=== PATIENT | male | born 1940 | race Caucasian/White ===

== ENCOUNTER → 2016-10-03 | Outpatient (CLI) | payer MEDICARE, OTHER ==
[~2016-10-03] MED LIST: ALBUTEROL0.09 MG/A2 INH; ASPIRIN81 MG PO; AUGMENTIN 875 M1 TAB PO; AUGMENTIN 875-875 MG PO; AZITHROMYCIN250 MG PO; BACTRIM DS 8001 TA1 PO; CLARITIN10 MG PO; DIAZEPAM2 MG PO; FLOMAX0.4 MG PO; LEVOFLOXACIN500 MG PO; LISINOPRIL5 MG PO; MELOXICAM15 MG; MOTRIN800 MG PO; NAPROSYN500 MG PO; NO DAILY MEDS; NORCO 10-325 T1 EACH PO; OMEPRAZOLE40 MG PO; OMNICEF300 MG PO; PREDNISONE50 MG PO; PRINIVIL5 MG; PROVENTIL0.09 MG/AC IH; TRAMADOL HCL50 MG PO; VESICARE10 MG PO; VICODIN 5/500 505 MG PO; VOLTAREN75 MG PO; ZANTAC 300300 MG PO; ZITHROMAX250 MG PO; ZOFRAN ODT4 MG SL; [UNRECOGNIZED DRUG - OTHER]
== END | disposition home or self-care (01) ==
LOC: LAB 13:51
DX: C61 Malignant neoplasm of prostate (principal)

== ENCOUNTER 2016-11-24 21:45 | Emergency (ER) | payer MEDICARE, OTHER ==
[~2016-11-24] VITALS: Ht 182.8 cm; Wt 95.3 kg
[2016-11-24 22:30] LABS: BASO % 0.6 % (0.0-1.0); EOS # 0.2 10*3/uL (0.0-0.4); EOS % 3.3 % (1.0-4.0); HEMATOCRIT 43.6 % (42.0-52.0); HEMOGLOBIN 14.9 g/dl (14.0-18.0); LYMPH # 3.1 10*3/uL (1.3-4.4); LYMPH % 43.8 % (27.0-41.0); MEAN CELL VOLUME 90.1 fl (80.0-94.0); MEAN CORPUSCULAR HGB 30.8 pg (27.0-31.0); MEAN CORPUSCULAR HGB CONC 34.2 g/dl (33.0-37.0); MEAN PLATELET VOLUME 9.9 fl (9.6-12.3); MONO # 0.6 10*3/uL (0.1-1.0); MONO % 8.5 % (3.0-9.0); NEUT # 3.1 10*3/uL (2.3-7.9); NEUT % 43.5 % (47.0-73.0); PLATELET COUNT AUTOMATED 129 10*3/uL (130-400); RED BLOOD COUNT 4.84 10*6/uL (4.50-5.90); RED CELL DISTRI WIDTH 12.3 % (0-14.5)
[2016-11-24 22:45] LABS: ALBUMIN 3.5 gm/dl (3.1-4.5); BILIRUBIN, TOTAL 0.6 mg/dl (0.2-1.0); TOTAL PROTEIN 6.8 gm/dL (6.4-8.2)
== END 2016-11-25 00:04 | disposition home or self-care (01) ==
LOC: ED 21:45
PROVIDERS: Registered Nurse
DX: L60.8 Other nail disorders (principal); F17.200 Nicotine dependence, unspecified, uncomplicated; Z79.82 Long term (current) use of aspirin

== ENCOUNTER → 2016-12-11 | Outpatient (CLI) | payer MEDICARE, OTHER ==
[2016-12-11 11:19] LABS: BASO % 0.4 % (0.0-1.0); EOS # 0.3 10*3/uL (0.0-0.4); EOS % 3.6 % (1.0-4.0); HEMATOCRIT 43.9 % (42.0-52.0); HEMOGLOBIN 15.3 g/dl (14.0-18.0); LYMPH # 3.4 10*3/uL (1.3-4.4); LYMPH % 42.3 % (27.0-41.0); MEAN CELL VOLUME 88.9 fl (80.0-94.0); MEAN CORPUSCULAR HGB CONC 34.9 g/dl (33.0-37.0); MONO # 0.5 10*3/uL (0.1-1.0); MONO % 6.6 % (3.0-9.0); NEUT # 3.8 10*3/uL (2.3-7.9); NEUT % 46.7 % (47.0-73.0); PLATELET COUNT AUTOMATED 141 10*3/uL (130-400); RED BLOOD COUNT 4.94 10*6/uL (4.50-5.90); RED CELL DISTRI WIDTH 12.2 % (0-14.5); WHITE BLOOD COUNT 8.1 10*3/uL (4.8-10.8)
[2016-12-11 11:37] LABS: BUN 17 mg/dl (7-24); EST GLOM FILT AFRICAN AMERICAN > 60 ml/min
== END | disposition home or self-care (01) ==
LOC: LAB 10:56
PROVIDERS: Psychiatry & Neurology Neurology
DX: Z13.89 Encounter for screening for other disorder (principal); R51 Headache

== ENCOUNTER → 2016-12-13 | Outpatient (CLI) | payer MEDICARE, OTHER | END | disposition home or self-care (01) | LOC: MRI 13:55 | DX: C61 Malignant neoplasm of prostate (principal); I10 Essential (primary) hypertension; R51 Headache; Z80.1 Family history of malignant neoplasm of trachea, bronchus and lung ==

== ENCOUNTER → 2017-02-13 | Day surgery (SDC) | payer MEDICARE, OTHER ==
[~2017-02-13] VITALS: Ht 182.8 cm; Wt 95.3 kg
[~2017-02-13] MED LIST changes: +PRILOSEC20 M1 PO
[2017-02-13 06:45] VITALS: BP 133/73
[2017-02-13 07:58] VITALS: BP 128/71
[2017-02-13 08:12] VITALS: BP 137/68
[2017-02-13 08:28] VITALS: BP 155/72
== END | disposition home or self-care (01) ==
LOC: SDC 02-10 13:15
DX: Z12.11 Encounter for screening for malignant neoplasm of colon (principal); K57.30 Diverticulosis of large intestine without perforation or abscess without bleeding; K64.8 Other hemorrhoids; D12.2 Benign neoplasm of ascending colon; I10 Essential (primary) hypertension; K21.9 Gastro-esophageal reflux disease without esophagitis; Z85.46 Personal history of malignant neoplasm of prostate; Z98.890 Other specified postprocedural states; F17.210 Nicotine dependence, cigarettes, uncomplicated

== ENCOUNTER 2017-09-01 19:51 | Inpatient (IN) | payer MEDICARE, OTHER ==
[~2017-09-01] VITALS: Ht 182.9 cm; Wt 102.2 kg
--- NOTE | ~2017-09-01 | CON ---
[place], [place] REPORT OF CONSULTATION NAME: KELLI DURAND UNIT #: [id number] ROOM: [facility] DOCTOR: KATALINA MARTIN,DHAVAL BIRTHDATE: [birth year] DOS: 09/02/2017 REASON FOR CONSULTATION: Chest pain. HISTORY OF PRESENT ILLNESS: The patient is a 76-year-old gentleman with history of hypertension and acid reflux, who came to the Emergency Room with left-sided chest pain, which started 6:00 in the evening at rest. He described it as an aching pain in the midsternal area. No radiation. Constant pain. No associated nausea, diaphoresis or shortness of breath. Initially he thought it was acid reflux, but did not resolve, hence he came to the Emergency Room and was sent to the hospital and Cardiology consult for any further recommendations. He denies any further chest pains. No PND or orthopnea. No palpitations. No nausea, vomiting or diarrhea. No headache. No bladder or bowel symptoms. No tingling, numbness or weakness. No neurologic symptoms. No genitourinary symptoms. No musculoskeletal symptoms. He has history of acid reflux, mostly asymptomatic. History of sleep apnea and hypertension. He does not smoke or drink. REVIEW OF SYSTEMS: Review of the 10 systems negative except as mentioned above. PAST MEDICAL HISTORY: 1. Hypertension. 2. Acid reflux. 3. Anemia. 4. Non-morbid obesity. 5. Sleep apnea. 6. Chronic kidney disease. 7. Degenerative disk disease. PAST SURGICAL HISTORY: Bilateral knee replacement. SOCIAL HISTORY: The patient occasionally smokes cigars, but no cigarettes, does not use drugs, does not drink. ALLERGIES: No known drug allergies. FAMILY HISTORY: Nil contributory. HOME MEDICATIONS: Reviewed including lisinopril 5 mg, Prilosec, Flomax and aspirin. REVIEW OF THE DIAGNOSTIC TESTS: Normal sinus rhythm, normal QT interval. Nonspecific ST-T changes. Rhythm strip showed sinus rhythm with occasional sinus bradycardia. Cardiac enzymes unremarkable. Potassium 4.1, magnesium 2.2. CBC unremarkable. Chest x-ray unremarkable, no acute cardiopulmonary pathology. IMPRESSION: 1. Chest pain, atypical, myocardial infarction ruled out. 2. Sinus bradycardia, asymptomatic. [place], [place] REPORT OF CONSULTATION NAME: KELLI DURAND UNIT #: [id number] ROOM: [facility] DOCTOR: KATALINA MARTIN,DHAVAL BIRTHDATE: [birth year] 3. Hypertension. 4. Acid reflux. 5. Sleep apnea. 6. Overweight. 7. Tobacco chew. 8. Intermittent lower extremity edema. RECOMMENDATION: The cardiac enzymes and EKGs are unremarkable. If blood pressures are stable, continue to watch the heart rates and avoid AV blocking medications due to sinus bradycardia. If not done, check his thyroid function test. He can be discharged home today from cardiac standpoint and we will see him as outpatient and schedule for outpatient stress test and a 2D echo. Risk factor modification to quit chewing tobacco as well as diet, exercise and weight loss discussed. There is no family at the bedside at the time of my examination. DHAVAL DARDEN MD CM:CONSTR:REPORT OF CONSULTATION 1642 09/03/17 0027 interface
[2017-09-01 19:52] VITALS: BP 146/71
[2017-09-01 20:06] LABS: BASO % 0.6 % (0.0-1.0); EOS # 0.3 10*3/uL (0.0-0.4); EOS % 3.9 % (1.0-4.0); HEMATOCRIT 42.5 % (42.0-52.0); HEMOGLOBIN 14.6 g/dl (14.0-18.0); LYMPH # 3.2 10*3/uL (1.3-4.4); LYMPH % 44.7 % (27.0-41.0); MEAN CORPUSCULAR HGB 30.9 pg (27.0-31.0); MEAN CORPUSCULAR HGB CONC 34.4 g/dl (33.0-37.0); MONO # 0.6 10*3/uL (0.1-1.0); MONO % 7.7 % (3.0-9.0); NEUT # 3.1 10*3/uL (2.3-7.9); NEUT % 42.8 % (47.0-73.0); PLATELET COUNT AUTOMATED 112 10*3/uL (130-400); RED BLOOD COUNT 4.72 10*6/uL (4.50-5.90); RED CELL DISTRI WIDTH 12.4 % (0-14.5); WHITE BLOOD COUNT 7.2 10*3/uL (4.8-10.8)
[2017-09-01 20:16] LABS: ACT PARTIAL THROMBO TIME 22.3 SECONDS (20.8-31.5); INTERNATIONAL NORM RATIO 0.9 (2.0-3.5)
[2017-09-01 20:22] LABS: ALBUMIN 3.5 gm/dl (3.1-4.5); ALKALINE PHOSPHATASE 63 U/L (45-117); BUN 17 mg/dl (7-24); CHLORIDE 104 mmol/L (98-107); CREATININE 1.27 mg/dL (0.70-1.30); POTASSIUM 3.7 mmol/L (3.5-5.1); SGOT/AST 21 IU/L (3-35); SGPT/ALT 22 U/L (12-78); SODIUM 139 mmol/L (136-145); TOTAL PROTEIN 6.7 gm/dL (6.4-8.2)
[2017-09-01 20:24] LABS: TROPONIN I < 0.015 ng/ml (<0.045)
[2017-09-01 20:31] VITALS: BP 133/85
[2017-09-01 20:52] VITALS: BP 134/80
[2017-09-01 21:14] VITALS: BP 143/72
[2017-09-01 22:00] VITALS: BP 135/55
[2017-09-01 22:40] VITALS: BP 153/59
[2017-09-01] MEDS ORDERED: DERMACINRX5000 UNIT PO (23:19)
[2017-09-02] VITALS: BP 144/64
[2017-09-02 07:46] LABS: BASO % 0.6 % (0.0-1.0); EOS # 0.2 10*3/uL (0.0-0.4); EOS % 3.8 % (1.0-4.0); HEMOGLOBIN 14.5 g/dl (14.0-18.0); LYMPH # 2.6 10*3/uL (1.3-4.4); LYMPH % 40.9 % (27.0-41.0); MEAN CELL VOLUME 89.6 fl (80.0-94.0); MEAN CORPUSCULAR HGB 30.2 pg (27.0-31.0); MEAN CORPUSCULAR HGB CONC 33.7 g/dl (33.0-37.0); MEAN PLATELET VOLUME 10.2 fl (9.6-12.3); MONO # 0.5 10*3/uL (0.1-1.0); MONO % 7.5 % (3.0-9.0); NEUT % 46.9 % (47.0-73.0); PLATELET COUNT AUTOMATED 122 10*3/uL (130-400); RED CELL DISTRI WIDTH 12.3 % (0-14.5); WHITE BLOOD COUNT 6.4 10*3/uL (4.8-10.8)
[2017-09-02 08:00] VITALS: BP 154/72
[2017-09-02 08:05] LABS: ALBUMIN 3.4 gm/dl (3.1-4.5); BUN 14 mg/dl (7-24); CHLORIDE 108 mmol/L (98-107); CHOLESTEROL 122 mg/dL (<200); CREATININE 1.16 mg/dL (0.70-1.30); HDL CHOLESTEROL 44 mg/dl (40-60); LDL CHOLESTEROL 66 mg/dL (9-159); PHOSPHOROUS 2.9 mg/dL (2.5-4.9); POTASSIUM 4.1 mmol/L (3.5-5.1); SGOT/AST 15 IU/L (3-35); SGPT/ALT 14 U/L (12-78); SODIUM 143 mmol/L (136-145); TOTAL PROTEIN 6.2 gm/dL (6.4-8.2); TRIGLYCERIDES 62 mg/dl (<150); VLDL CHOLESTEROL 12 mg/dL (6-40)
[2017-09-02 08:12] LABS: ALKALINE PHOSPHATASE 54 U/L (45-117)
[2017-09-02 08:30] LABS: VITAMIN D, 25-HYDROXY 74.5 ng/mL (30-100)
[2017-09-02 12:00] VITALS: BP 158/76
== END 2017-09-02 13:48 | disposition home or self-care (01) | DRG 313 ==
LOC: ED 19:51 → EDHOLD 22:01 → 5E 22:23
PROVIDERS: Emergency Medicine Emergency Medical Services; Internal Medicine
DX: R07.89 Other chest pain (principal); D69.6 Thrombocytopenia, unspecified; D64.9 Anemia, unspecified; N18.3 Chronic kidney disease, stage 3 (moderate); R00.1 Bradycardia, unspecified; K21.9 Gastro-esophageal reflux disease without esophagitis; E83.41 Hypermagnesemia; F17.200 Nicotine dependence, unspecified, uncomplicated; G47.33 Obstructive sleep apnea (adult) (pediatric); M19.90 Unspecified osteoarthritis, unspecified site; K57.30 Diverticulosis of large intestine without perforation or abscess without bleeding; I12.9 Hypertensive chronic kidney disease with stage 1 through stage 4 chronic kidney disease, or unspecified chronic kidney disease; R73.9 Hyperglycemia, unspecified; E53.8 Deficiency of other specified B group vitamins; E66.01 Morbid (severe) obesity due to excess calories; Z96.653 Presence of artificial knee joint, bilateral; Z80.8 Family history of malignant neoplasm of other organs or systems; Z71.6 Tobacco abuse counseling; Z79.82 Long term (current) use of aspirin; Z72.89 Other problems related to lifestyle; Z68.27 Body mass index [BMI] 27.0-27.9, adult

== ENCOUNTER → 2017-09-06 | Outpatient (CLI) | payer MEDICARE, OTHER ==
[~2017-09-06] MED LIST changes: +DERMACINRX5000 UNIT PO
--- NOTE | ~2017-09-06 | ST ---
[place], [place] EXERCISE STRESS TEST REPORT NAME: KELLI DURAND [facility] #: [id number] UNIT #: [id number] ROOM: DOCTOR: MAUDE BOSS MD BIRTHDATE: [birth year] DOS: 09/06/2017 PHARMACOLOGIC STRESS TEST INDICATIONS: Chest pain. PROCEDURE: The patient walked on a full Mauricio protocol stress test for 6 minutes 45 seconds and achieved a maximum heart rate of 130, which represented 89% of his maximum predicted heart rate at a workload of 10 mets. He stopped because of fatigue and did not reproduce his chest pain. The resting electrocardiogram was normal. With exercise, he did have mild J-point depression with rapid upsloping ST segments. The Dalton treadmill score was 6.75 consistent with a good cardiac prognosis. One minute prior to completion of the exercise protocol, the patient was given radionuclide intravenously. IMPRESSION: 1. Adequate exercise capacity without chest pain or diagnostic electrocardiographic changes. 2. Radionuclide administered. Please see the separately reported imaging report for details of the patient's stress test imaging results. MAUDE BOSS MD CM:STRESS:EXERCISE STRESS TEST REPORT [id number] MAUDE BOSS MD
== END | disposition home or self-care (01) ==
LOC: CARD 00:16
DX: R07.2 Precordial pain (principal)

== ENCOUNTER 2018-02-12 22:27 | Emergency (ER) | payer MEDICARE, OTHER ==
[~2018-02-12] VITALS: Ht 182.8 cm; Wt 90.7 kg
== END 2018-02-12 23:06 | disposition home or self-care (01) ==
LOC: ED 22:27
DX: T16.2XXA Foreign body in left ear, initial encounter (principal); K21.9 Gastro-esophageal reflux disease without esophagitis; I12.9 Hypertensive chronic kidney disease with stage 1 through stage 4 chronic kidney disease, or unspecified chronic kidney disease; N18.3 Chronic kidney disease, stage 3 (moderate); E66.9 Obesity, unspecified; Z87.891 Personal history of nicotine dependence; Z79.899 Other long term (current) drug therapy; Z79.82 Long term (current) use of aspirin; X58.XXXA Exposure to other specified factors, initial encounter; Y93.89 Activity, other specified; Y92.89 Other specified places as the place of occurrence of the external cause; Y99.8 Other external cause status

== ENCOUNTER → 2018-03-21 | Outpatient (CLI) | payer MEDICARE, OTHER ==
[2018-03-21 10:17] LABS: THYROID STIM HORMONE (HS) 2.14 uIU/ml (0.358-4.75)
[2018-03-22 17:38] LABS: FOLLICLE STIMULATING HORMONE 36.3 mIU/mL (1.5-12.4); LUTEINIZING HORMONE 004283 27.5 mIU/mL (1.7-8.6); PROLACTIN 004465 11.5 ng/mL (4.0-15.2)
== END | disposition home or self-care (01) ==
LOC: LAB 09:02
PROVIDERS: Urology
DX: Z12.5 Encounter for screening for malignant neoplasm of prostate (principal); E29.1 Testicular hypofunction; N42.9 Disorder of prostate, unspecified

== ENCOUNTER → 2018-09-19 | Outpatient (CLI) | payer MEDICARE ==
[~2018-09-19] MED LIST changes: +MIRALAX POWDER17 G1 PO; +STOOL SOFTENER100 M3 PO
== END | disposition home or self-care (01) ==
LOC: CT 01:24
DX: K76.0 Fatty (change of) liver, not elsewhere classified (principal); K80.20 Calculus of gallbladder without cholecystitis without obstruction; K44.9 Diaphragmatic hernia without obstruction or gangrene; N20.0 Calculus of kidney; R79.89 Other specified abnormal findings of blood chemistry; K59.01 Slow transit constipation

== ENCOUNTER → 2019-02-13 | Outpatient (CLI) | payer MEDICARE | END | disposition home or self-care (01) | LOC: LAB 09:59 | DX: C61 Malignant neoplasm of prostate (principal) ==

== ENCOUNTER → 2019-03-18 | Outpatient (CLI) | payer MEDICARE | END | disposition home or self-care (01) | LOC: CT 07:41 | DX: N20.0 Calculus of kidney (principal); K57.92 Diverticulitis of intestine, part unspecified, without perforation or abscess without bleeding; J43.8 Other emphysema; K76.89 Other specified diseases of liver ==

== ENCOUNTER → 2019-07-03 | Outpatient (CLI) | payer MEDICARE, OTHER | LOC: US 11:45 | DX: I82.890 Acute embolism and thrombosis of other specified veins (principal); R19.00 Intra-abdominal and pelvic swelling, mass and lump, unspecified site; M79.89 Other specified soft tissue disorders; M71.22 Synovial cyst of popliteal space [Baker], left knee; I82.432 Acute embolism and thrombosis of left popliteal vein ==

== ENCOUNTER → 2019-11-28 | Outpatient (CLI) | payer MEDICARE, OTHER | END | disposition home or self-care (01) | LOC: LAB 14:31 | DX: C61 Malignant neoplasm of prostate (principal) ==

== ENCOUNTER 2021-06-19 14:06 | Inpatient (IN) | payer MEDICARE ==
[~2021-06-19] VITALS: Ht 180.3 cm; Wt 99.9 kg
[2021-06-19 14:13] VITALS: BP 146/79
[2021-06-19 15:01] LABS: BASO % 0.2 % (0.0-1.0); EOS % 0.3 % (1.0-4.0); HEMATOCRIT 40.6 % (42.0-52.0); LYMPH # 1.1 10*3/uL (1.3-4.4); LYMPH % 17.7 % (27.0-41.0); MEAN CELL VOLUME 84.2 fl (80.0-94.0); MEAN CORPUSCULAR HGB 30.5 pg (27.0-31.0); MEAN CORPUSCULAR HGB CONC 36.2 g/dl (33.0-37.0); MEAN PLATELET VOLUME 10.1 fl (9.6-12.3); MONO # 0.4 10*3/uL (0.1-1.0); MONO % 6.9 % (3.0-9.0); NEUT # 4.5 10*3/uL (2.3-7.9); NEUT % 74.6 % (47.0-73.0); PLATELET COUNT AUTOMATED 115 10*3/uL (130-400); RED BLOOD COUNT 4.82 10*6/uL (4.50-5.90); RED CELL DISTRI WIDTH 12.3 % (0-14.5)
[2021-06-19 15:18] LABS: ALBUMIN 2.6 gm/dl (3.1-4.5); ALKALINE PHOSPHATASE 94 U/L (45-117); BUN 10 mg/dl (7-24); CHLORIDE 91 mmol/L (98-107); CREATININE 0.77 mg/dL (0.70-1.30); POTASSIUM 4.7 mmol/L (3.5-5.1); SGOT/AST 49 IU/L (3-35); SGPT/ALT 30 U/L (12-78); SODIUM 125 mmol/L (136-145); TOTAL PROTEIN 6.2 gm/dL (6.4-8.2)
[2021-06-19 15:32] VITALS: BP 146/75
[2021-06-19 16:07] VITALS: BP 144/68
[2021-06-19 18:39] VITALS: BP 164/78
[2021-06-19 20:02] VITALS: BP 168/72
[2021-06-19 20:43] VITALS: BP 157/81
[2021-06-19 21:23] LABS: BUN 8 mg/dl (7-24); CHLORIDE 94 mmol/L (98-107); CREATININE 0.85 mg/dL (0.70-1.30); POTASSIUM 5.1 mmol/L (3.5-5.1); SODIUM 125 mmol/L (136-145)
[2021-06-20] VITALS: BP 162/80
[2021-06-20 06:16] LABS: ALBUMIN 2.4 gm/dl (3.1-4.5); ALKALINE PHOSPHATASE 91 U/L (45-117); BUN 11 mg/dl (7-24); CHLORIDE 97 mmol/L (98-107); CHOLESTEROL 89 mg/dL (<200); CREATININE 0.85 mg/dL (0.70-1.30); POTASSIUM 5.1 mmol/L (3.5-5.1); SGOT/AST 40 IU/L (3-35); SGPT/ALT 28 U/L (12-78); SODIUM 128 mmol/L (136-145); TOTAL PROTEIN 5.9 gm/dL (6.4-8.2); TRIGLYCERIDES 47 mg/dl (<150)
[2021-06-20 06:20] LABS: HEMATOCRIT 39.2 % (42.0-52.0); LYMPH # 0.8 10*3/uL (1.3-4.4); LYMPH % 17.4 % (27.0-41.0); MEAN CELL VOLUME 83.8 fl (80.0-94.0); MEAN CORPUSCULAR HGB 30.6 pg (27.0-31.0); MEAN CORPUSCULAR HGB CONC 36.5 g/dl (33.0-37.0); MEAN PLATELET VOLUME 10.4 fl (9.6-12.3); MONO # 0.4 10*3/uL (0.1-1.0); MONO % 8.3 % (3.0-9.0); NEUT # 3.3 10*3/uL (2.3-7.9); NEUT % 73.9 % (47.0-73.0); PLATELET COUNT AUTOMATED 120 10*3/uL (130-400); RED BLOOD COUNT 4.68 10*6/uL (4.50-5.90); RED CELL DISTRI WIDTH 12.2 % (0-14.5); WHITE BLOOD COUNT 4.5 10*3/uL (4.8-10.8)
[2021-06-20 06:24] LABS: FREE T4 1.62 ng/dl (0.76-1.46); LDL CHOLESTEROL 35 mg/dL (9-159); THYROID STIM HORMONE (HS) 0.643 uIU/ml (0.358-4.75)
[2021-06-20 07:23] LABS: FERRITIN 1644.7 ng/mL (22.0-322.0)
[2021-06-20] MEDS ORDERED: MELOXICAM15 MG PO (07:40)
[2021-06-20 08:00] VITALS: BP 126/84; BP 151/80
[2021-06-20 10:46] LABS: ABG BASE EXCESS -1.2 mmol/L (-2.0-2.0); ARTERIAL BLOOD GAS PH 7.457 (7.35-7.45); ARTERIAL BLOOD GAS PO2 59.3 (80-90)
[2021-06-20 12:00] VITALS: BP 136/61
[2021-06-20 16:00] VITALS: BP 157/76
[2021-06-20 20:00] VITALS: BP 158/78
[2021-06-21] VITALS: BP 159/74
[2021-06-21 06:08] LABS: ALBUMIN 2.5 gm/dl (3.1-4.5); ALKALINE PHOSPHATASE 91 U/L (45-117); BUN 14 mg/dl (7-24); CHLORIDE 97 mmol/L (98-107); CREATININE 0.92 mg/dL (0.70-1.30); POTASSIUM 4.7 mmol/L (3.5-5.1); SGOT/AST 26 IU/L (3-35); SGPT/ALT 28 U/L (12-78); SODIUM 131 mmol/L (136-145); TOTAL PROTEIN 6.3 gm/dL (6.4-8.2)
[2021-06-21 06:12] LABS: HEMATOCRIT 40.8 % (42.0-52.0); LYMPH # 0.9 10*3/uL (1.3-4.4); LYMPH % 15.6 % (27.0-41.0); MEAN CELL VOLUME 86.6 fl (80.0-94.0); MEAN CORPUSCULAR HGB 30.1 pg (27.0-31.0); MEAN CORPUSCULAR HGB CONC 34.8 g/dl (33.0-37.0); MEAN PLATELET VOLUME 9.8 fl (9.6-12.3); MONO # 0.5 10*3/uL (0.1-1.0); NEUT # 4.3 10*3/uL (2.3-7.9); PLATELET COUNT AUTOMATED 142 10*3/uL (130-400); RED BLOOD COUNT 4.71 10*6/uL (4.50-5.90); RED CELL DISTRI WIDTH 12.2 % (0-14.5); WHITE BLOOD COUNT 5.6 10*3/uL (4.8-10.8)
[2021-06-21 12:01] VITALS: BP 146/61
[2021-06-21 16:00] VITALS: BP 155/67
[2021-06-21 20:57] VITALS: BP 158/86
[2021-06-22] VITALS: BP 156/78
[2021-06-22 06:33] LABS: BASO % 0.1 % (0.0-1.0); HEMATOCRIT 41.2 % (42.0-52.0); LYMPH % 13.1 % (27.0-41.0); MEAN CELL VOLUME 86.9 fl (80.0-94.0); MEAN CORPUSCULAR HGB 30.6 pg (27.0-31.0); MEAN CORPUSCULAR HGB CONC 35.2 g/dl (33.0-37.0); MEAN PLATELET VOLUME 9.8 fl (9.6-12.3); MONO # 0.6 10*3/uL (0.1-1.0); MONO % 7.4 % (3.0-9.0); NEUT # 6.2 10*3/uL (2.3-7.9); NEUT % 78.8 % (47.0-73.0); PLATELET COUNT AUTOMATED 157 10*3/uL (130-400); RED BLOOD COUNT 4.74 10*6/uL (4.50-5.90); RED CELL DISTRI WIDTH 12.2 % (0-14.5); WHITE BLOOD COUNT 7.9 10*3/uL (4.8-10.8)
[2021-06-22 06:51] LABS: ALBUMIN 2.4 gm/dl (3.1-4.5); ALKALINE PHOSPHATASE 84 U/L (45-117); BUN 17 mg/dl (7-24); CHLORIDE 100 mmol/L (98-107); CREATININE 0.84 mg/dL (0.70-1.30); POTASSIUM 4.8 mmol/L (3.5-5.1); SGOT/AST 26 IU/L (3-35); SGPT/ALT 29 U/L (12-78); SODIUM 133 mmol/L (136-145)
[2021-06-22 08:00] VITALS: BP 134/78
[2021-06-22 12:00] VITALS: BP 140/72
[2021-06-22 16:00] VITALS: BP 131/58
[2021-06-22 20:00] VITALS: BP 122/71
[2021-06-23] VITALS: BP 133/71
[2021-06-23 06:14] LABS: HEMATOCRIT 39.9 % (42.0-52.0); LYMPH # 1.2 10*3/uL (1.3-4.4); LYMPH % 16.7 % (27.0-41.0); MEAN CELL VOLUME 87.3 fl (80.0-94.0); MEAN CORPUSCULAR HGB 30.4 pg (27.0-31.0); MEAN CORPUSCULAR HGB CONC 34.8 g/dl (33.0-37.0); MEAN PLATELET VOLUME 9.4 fl (9.6-12.3); MONO # 0.5 10*3/uL (0.1-1.0); MONO % 6.4 % (3.0-9.0); NEUT # 5.6 10*3/uL (2.3-7.9); NEUT % 76.4 % (47.0-73.0); PLATELET COUNT AUTOMATED 163 10*3/uL (130-400); RED BLOOD COUNT 4.57 10*6/uL (4.50-5.90); RED CELL DISTRI WIDTH 12.3 % (0-14.5); WHITE BLOOD COUNT 7.4 10*3/uL (4.8-10.8)
[2021-06-23 06:45] LABS: BUN 18 mg/dl (7-24); CHLORIDE 100 mmol/L (98-107); POTASSIUM 4.7 mmol/L (3.5-5.1); SODIUM 134 mmol/L (136-145)
[2021-06-23 08:00] VITALS: BP 161/75
[2021-06-23 12:00] VITALS: BP 127/63
[2021-06-23 16:00] VITALS: BP 128/70
[2021-06-23 20:00] VITALS: BP 142/82
[2021-06-24] VITALS: BP 141/62
[2021-06-24 06:25] LABS: EOS % 0.2 % (1.0-4.0); HEMATOCRIT 39.2 % (42.0-52.0); LYMPH # 1.3 10*3/uL (1.3-4.4); LYMPH % 19.9 % (27.0-41.0); MEAN CELL VOLUME 87.1 fl (80.0-94.0); MEAN CORPUSCULAR HGB 30.9 pg (27.0-31.0); MEAN CORPUSCULAR HGB CONC 35.5 g/dl (33.0-37.0); MEAN PLATELET VOLUME 9.2 fl (9.6-12.3); MONO # 0.4 10*3/uL (0.1-1.0); MONO % 6.8 % (3.0-9.0); NEUT # 4.5 10*3/uL (2.3-7.9); NEUT % 72.1 % (47.0-73.0); PLATELET COUNT AUTOMATED 179 10*3/uL (130-400); RED CELL DISTRI WIDTH 12.3 % (0-14.5); WHITE BLOOD COUNT 6.3 10*3/uL (4.8-10.8)
[2021-06-24 06:49] LABS: ALBUMIN 2.3 gm/dl (3.1-4.5); ALKALINE PHOSPHATASE 84 U/L (45-117); BUN 19 mg/dl (7-24); CHLORIDE 101 mmol/L (98-107); CREATININE 0.77 mg/dL (0.70-1.30); POTASSIUM 4.6 mmol/L (3.5-5.1); SGOT/AST 31 IU/L (3-35); SGPT/ALT 54 U/L (12-78); SODIUM 135 mmol/L (136-145)
[2021-06-24 08:00] VITALS: BP 137/70
[2021-06-24 12:00] VITALS: BP 128/78
[2021-06-24 16:00] VITALS: BP 140/64
[2021-06-24 20:00] VITALS: BP 133/70
[2021-06-25] VITALS: BP 143/68
[2021-06-25 06:29] LABS: BASO % 0.1 % (0.0-1.0); EOS % 0.4 % (1.0-4.0); HEMATOCRIT 44.4 % (42.0-52.0); LYMPH # 1.5 10*3/uL (1.3-4.4); LYMPH % 19.9 % (27.0-41.0); MEAN CELL VOLUME 88.3 fl (80.0-94.0); MEAN CORPUSCULAR HGB 30.6 pg (27.0-31.0); MEAN CORPUSCULAR HGB CONC 34.7 g/dl (33.0-37.0); MEAN PLATELET VOLUME 9.4 fl (9.6-12.3); MONO # 0.4 10*3/uL (0.1-1.0); MONO % 5.6 % (3.0-9.0); NEUT # 5.7 10*3/uL (2.3-7.9); PLATELET COUNT AUTOMATED 213 10*3/uL (130-400); RED BLOOD COUNT 5.03 10*6/uL (4.50-5.90); RED CELL DISTRI WIDTH 12.2 % (0-14.5); WHITE BLOOD COUNT 7.7 10*3/uL (4.8-10.8)
[2021-06-25 06:45] LABS: ALBUMIN 2.5 gm/dl (3.1-4.5); ALKALINE PHOSPHATASE 83 U/L (45-117); BUN 20 mg/dl (7-24); CHLORIDE 100 mmol/L (98-107); CREATININE 0.92 mg/dL (0.70-1.30); POTASSIUM 4.7 mmol/L (3.5-5.1); SGOT/AST 25 IU/L (3-35); SGPT/ALT 47 U/L (12-78); SODIUM 135 mmol/L (136-145); TOTAL PROTEIN 6.3 gm/dL (6.4-8.2)
[2021-06-25 08:00] VITALS: BP 131/55
[2021-06-25 12:00] VITALS: BP 137/58
[2021-06-25 16:00] VITALS: BP 135/72
[2021-06-25 20:00] VITALS: BP 138/74
[2021-06-26] VITALS: BP 126/77
[2021-06-26 05:23] LABS: BUN 21 mg/dl (7-24); CHLORIDE 102 mmol/L (98-107); CREATININE 0.85 mg/dL (0.70-1.30); POTASSIUM 4.7 mmol/L (3.5-5.1); SODIUM 132 mmol/L (136-145)
[2021-06-26 06:15] LABS: BASO % 0.4 % (0.0-1.0); EOS % 0.2 % (1.0-4.0); HEMATOCRIT 42.3 % (42.0-52.0); LYMPH # 1.1 10*3/uL (1.3-4.4); LYMPH % 20.2 % (27.0-41.0); MEAN CELL VOLUME 87.9 fl (80.0-94.0); MEAN CORPUSCULAR HGB 30.4 pg (27.0-31.0); MEAN CORPUSCULAR HGB CONC 34.5 g/dl (33.0-37.0); MEAN PLATELET VOLUME 10.7 fl (9.6-12.3); MONO # 0.3 10*3/uL (0.1-1.0); MONO % 6.5 % (3.0-9.0); NEUT # 3.7 10*3/uL (2.3-7.9); NEUT % 70.2 % (47.0-73.0); RED BLOOD COUNT 4.81 10*6/uL (4.50-5.90); RED CELL DISTRI WIDTH 12.2 % (0-14.5); WHITE BLOOD COUNT 5.2 10*3/uL (4.8-10.8)
[2021-06-26 06:57] LABS: PLATELET COUNT AUTOMATED 135 10*3/uL (130-400)
[2021-06-26 09:00] VITALS: BP 127/73
[2021-06-26 12:00] VITALS: BP 129/62
[2021-06-26 16:00] VITALS: BP 124/63
[2021-06-26 20:00] VITALS: BP 135/59
[2021-06-27] VITALS: BP 128/66
[2021-06-27 06:16] LABS: BASO % 0.3 % (0.0-1.0); EOS % 0.3 % (1.0-4.0); HEMATOCRIT 40.6 % (42.0-52.0); LYMPH # 1.4 10*3/uL (1.3-4.4); LYMPH % 22.4 % (27.0-41.0); MEAN CELL VOLUME 88.8 fl (80.0-94.0); MEAN CORPUSCULAR HGB 30.2 pg (27.0-31.0); MONO # 0.5 10*3/uL (0.1-1.0); MONO % 7.8 % (3.0-9.0); NEUT # 4.2 10*3/uL (2.3-7.9); NEUT % 67.1 % (47.0-73.0); PLATELET COUNT AUTOMATED 163 10*3/uL (130-400); RED BLOOD COUNT 4.57 10*6/uL (4.50-5.90); RED CELL DISTRI WIDTH 12.3 % (0-14.5); WHITE BLOOD COUNT 6.3 10*3/uL (4.8-10.8)
[2021-06-27 06:30] LABS: BUN 23 mg/dl (7-24); CHLORIDE 102 mmol/L (98-107); CREATININE 0.93 mg/dL (0.70-1.30); POTASSIUM 4.9 mmol/L (3.5-5.1); SODIUM 132 mmol/L (136-145)
[2021-06-27 08:00] VITALS: BP 138/64
[2021-06-27 12:00] VITALS: BP 133/63
[2021-06-27 16:00] VITALS: BP 130/64
[2021-06-27 20:00] VITALS: BP 131/62
[2021-06-28] VITALS: BP 128/63
[2021-06-28 08:00] VITALS: BP 123/60
[2021-06-28 12:00] VITALS: BP 116/58
[2021-06-28 16:52] VITALS: BP 114/54
[2021-06-28 20:00] VITALS: BP 120/56
[2021-06-29] VITALS: BP 121/63
[2021-06-29 06:43] LABS: BUN 22 mg/dl (7-24); CHLORIDE 102 mmol/L (98-107); POTASSIUM 4.8 mmol/L (3.5-5.1); SODIUM 134 mmol/L (136-145)
[2021-06-29 08:00] VITALS: BP 124/51
[2021-06-29 08:03] LABS: BASO % 0.2 % (0.0-1.0); EOS % 0.1 % (1.0-4.0); LYMPH # 1.7 10*3/uL (1.3-4.4); LYMPH % 19.7 % (27.0-41.0); MEAN CELL VOLUME 88.6 fl (80.0-94.0); MEAN CORPUSCULAR HGB 30.2 pg (27.0-31.0); MEAN CORPUSCULAR HGB CONC 34.1 g/dl (33.0-37.0); MEAN PLATELET VOLUME 8.9 fl (9.6-12.3); MONO # 0.7 10*3/uL (0.1-1.0); MONO % 8.4 % (3.0-9.0); NEUT % 69.2 % (47.0-73.0); PLATELET COUNT AUTOMATED 181 10*3/uL (130-400); RED BLOOD COUNT 4.63 10*6/uL (4.50-5.90); RED CELL DISTRI WIDTH 12.2 % (0-14.5); WHITE BLOOD COUNT 8.6 10*3/uL (4.8-10.8)
[2021-06-29] MEDS ORDERED: MELATONIN5 M7 PO (10:49)
[2021-06-29] MEDS ORDERED: LISINOPRIL10 M1 PO (10:49)
[2021-06-29 11:36] VITALS: BP 150/53
== END 2021-06-29 16:55 | DRG 177 ==
LOC: ED 14:06 → 4E 15:32 → EDHOLD 15:32 → 4E 19:55
PROVIDERS: Family Medicine; Internal Medicine; Physician Assistant; Student in an Organized Health Care Education/Training Program; ADMIT Student in an Organized Health Care Education/Training Program; ATTEND Student in an Organized Health Care Education/Training Program
PROC: 5A0935A Assistance with Respiratory Ventilation, Less than 24 Consecutive Hours, High Flow/Velocity Cannula (ICD-10-PCS; principal; 2021-06-20)
PROC: 5A09357 Assistance with Respiratory Ventilation, Less than 24 Consecutive Hours, Continuous Positive Airway Pressure (ICD-10-PCS; 2021-06-20)
PROC: XW033E5 Introduction of Remdesivir Anti-infective into Peripheral Vein, Percutaneous Approach, New Technology Group 5 (ICD-10-PCS; 2021-06-20)
PROC: 5A0935A Assistance with Respiratory Ventilation, Less than 24 Consecutive Hours, High Flow/Velocity Cannula (ICD-10-PCS; 2021-06-23)
PROC: 5A09357 Assistance with Respiratory Ventilation, Less than 24 Consecutive Hours, Continuous Positive Airway Pressure (ICD-10-PCS; 2021-06-24)
PROC: 5A0935A Assistance with Respiratory Ventilation, Less than 24 Consecutive Hours, High Flow/Velocity Cannula (ICD-10-PCS; 2021-06-25)
PROC: 5A09357 Assistance with Respiratory Ventilation, Less than 24 Consecutive Hours, Continuous Positive Airway Pressure (ICD-10-PCS; 2021-06-25)
PROC: 5A0935A Assistance with Respiratory Ventilation, Less than 24 Consecutive Hours, High Flow/Velocity Cannula (ICD-10-PCS; 2021-06-26)
PROC: 5A0935A Assistance with Respiratory Ventilation, Less than 24 Consecutive Hours, High Flow/Velocity Cannula (ICD-10-PCS; 2021-06-27)
PROC: 5A09357 Assistance with Respiratory Ventilation, Less than 24 Consecutive Hours, Continuous Positive Airway Pressure (ICD-10-PCS; 2021-06-27)
PROC: 5A09357 Assistance with Respiratory Ventilation, Less than 24 Consecutive Hours, Continuous Positive Airway Pressure (ICD-10-PCS; 2021-06-28)
PROC: 5A09357 Assistance with Respiratory Ventilation, Less than 24 Consecutive Hours, Continuous Positive Airway Pressure (ICD-10-PCS; 2021-06-29)
DX: U07.1 COVID-19 (principal); J12.82 Pneumonia due to coronavirus disease 2019; E43 Unspecified severe protein-calorie malnutrition; J96.01 Acute respiratory failure with hypoxia; E87.1 Hypo-osmolality and hyponatremia; I12.9 Hypertensive chronic kidney disease with stage 1 through stage 4 chronic kidney disease, or unspecified chronic kidney disease; N18.30 Chronic kidney disease, stage 3 unspecified; K21.9 Gastro-esophageal reflux disease without esophagitis; D69.6 Thrombocytopenia, unspecified; E87.8 Other disorders of electrolyte and fluid balance, not elsewhere classified; R73.9 Hyperglycemia, unspecified; R74.01 Elevation of levels of liver transaminase levels; Z68.30 Body mass index [BMI] 30.0-30.9, adult; Z98.2 Presence of cerebrospinal fluid drainage device; Z79.899 Other long term (current) drug therapy; E86.0 Dehydration

== ENCOUNTER 2021-07-03 07:49 | Emergency (ER) | payer MEDICARE ==
[~2021-07-03] VITALS: Wt 89.4 kg
[~2021-07-03 07:49] MED LIST changes: +LISINOPRIL10 M1 PO; +MELATONIN5 M7 PO; +MELOXICAM15 MG PO
[2021-07-03 08:23] LABS: BASO % 0.3 % (0.0-1.0); EOS # 0.2 10*3/uL (0.0-0.4); EOS % 1.3 % (1.0-4.0); HEMATOCRIT 41.5 % (42.0-52.0); LYMPH # 3.2 10*3/uL (1.3-4.4); LYMPH % 27.5 % (27.0-41.0); MEAN CELL VOLUME 90.6 fl (80.0-94.0); MEAN CORPUSCULAR HGB 30.3 pg (27.0-31.0); MEAN CORPUSCULAR HGB CONC 33.5 g/dl (33.0-37.0); MEAN PLATELET VOLUME 9.2 fl (9.6-12.3); MONO # 0.9 10*3/uL (0.1-1.0); MONO % 7.4 % (3.0-9.0); NEUT # 7.2 10*3/uL (2.3-7.9); NEUT % 62.3 % (47.0-73.0); PLATELET COUNT AUTOMATED 116 10*3/uL (130-400); RED BLOOD COUNT 4.58 10*6/uL (4.50-5.90); RED CELL DISTRI WIDTH 12.5 % (0-14.5); WHITE BLOOD COUNT 11.6 10*3/uL (4.8-10.8)
[2021-07-03 08:41] LABS: ALBUMIN 2.3 gm/dl (3.1-4.5); ALKALINE PHOSPHATASE 88 U/L (45-117); BUN 18 mg/dl (7-24); CHLORIDE 104 mmol/L (98-107); CPK 34 U/L (39-308); CREATININE 1.07 mg/dL (0.70-1.30); POTASSIUM 3.9 mmol/L (3.5-5.1); SGOT/AST 18 IU/L (3-35); SGPT/ALT 32 U/L (12-78); SODIUM 138 mmol/L (136-145); TOTAL PROTEIN 6.4 gm/dL (6.4-8.2)
[2021-07-03 12:09] LABS: BILIRUBIN Negative (Negative); BLOOD Negative (Negative); CLARITY Clear (Clear); COLOR Yellow (Yellow); GLUCOSE Negative (Negative); KETONE Negative (Negative); LEUKO ESTERASE Negative (Negative); NITRITE Negative (Negative); SPECIFIC GRAVITY >= 1.030 (1.001-1.030)
[2021-07-03 12:19] LABS: EPITHELIAL CELLS 0-2; MUCOUS 1+; RBC 0-2 rbc/hpf (0-2); WBC 0-2 wbc/hpf (0-5)
[2021-07-03 12:20] LABS: BACTERIA 2+
[2021-07-03] MEDS ORDERED: VIBRAMYCIN100 MG PO (12:30)
[2021-07-04] MEDS ORDERED: TYLENOL325 M1 PO (21:17)
[2021-07-04] MEDS ORDERED: TUBERSOL1 M1 IC (21:18)
== END 2021-07-03 12:55 ==
LOC: ED 07:49
PROVIDERS: Emergency Medicine
DX: J18.9 Pneumonia, unspecified organism (principal); I12.9 Hypertensive chronic kidney disease with stage 1 through stage 4 chronic kidney disease, or unspecified chronic kidney disease; N18.30 Chronic kidney disease, stage 3 unspecified; K21.9 Gastro-esophageal reflux disease without esophagitis; E66.9 Obesity, unspecified; Z79.899 Other long term (current) drug therapy; Z79.82 Long term (current) use of aspirin; Z98.890 Other specified postprocedural states; Z87.891 Personal history of nicotine dependence

== ENCOUNTER 2021-11-10 15:11 | Emergency (ER) | payer MEDICARE ==
[~2021-11-10] VITALS: Ht 182.8 cm; Wt 96.6 kg
[~2021-11-10 15:11] MED LIST changes: +BENZONATATE100 M1 PO; +ENOXAPARIN40 MG/0.2 SC; +HYCODAN 5 MG-1.55 ML PO; +Ipratropium Brom3 ML NEB; +TUBERSOL1 M1 IC; +TYLENOL325 M1 PO; +VIBRAMYCIN100 MG PO; +ZOSYN 4.54.5 GM/100 IV
[2021-11-10 15:58] LABS: BASO % 0.5 % (0.0-1.0); EOS # 0.2 10*3/uL (0.0-0.4); EOS % 2.8 % (1.0-4.0); HEMATOCRIT 40.9 % (42.0-52.0); LYMPH # 4.3 10*3/uL (1.3-4.4); LYMPH % 53.4 % (27.0-41.0); MEAN CELL VOLUME 86.8 fl (80.0-94.0); MEAN CORPUSCULAR HGB 29.5 pg (27.0-31.0); MEAN PLATELET VOLUME 9.8 fl (9.6-12.3); MONO # 0.6 10*3/uL (0.1-1.0); MONO % 7.5 % (3.0-9.0); NEUT # 2.9 10*3/uL (2.3-7.9); NEUT % 35.4 % (47.0-73.0); PLATELET COUNT AUTOMATED 142 10*3/uL (130-400); RED BLOOD COUNT 4.71 10*6/uL (4.50-5.90); RED CELL DISTRI WIDTH 12.3 % (0-14.5); WHITE BLOOD COUNT 8.1 10*3/uL (4.8-10.8)
[2021-11-10 16:16] LABS: ALKALINE PHOSPHATASE 61 U/L (45-117); BUN 14 mg/dl (7-24); CHLORIDE 109 mmol/L (98-107); CREATININE 1.05 mg/dL (0.70-1.30); POTASSIUM 4.2 mmol/L (3.5-5.1); SGOT/AST 13 IU/L (3-35); SGPT/ALT 12 U/L (12-78); SODIUM 140 mmol/L (136-145); TOTAL PROTEIN 6.8 gm/dL (6.4-8.2)
[2021-11-10 16:37] LABS: ABG BASE EXCESS 0.4 mmol/L (-2.0-2.0); ARTERIAL BLOOD GAS PH 7.406 (7.35-7.45); ARTERIAL BLOOD GAS PO2 134.1 (80-90)
[2021-11-10] MEDS ORDERED: PREDNISONE10 MG PO (17:38)
[2021-11-10] MEDS ORDERED: VIBRA-TAB100 MG PO (17:38)
== END 2021-11-10 17:56 | disposition home or self-care (01) ==
LOC: ED 15:11
PROVIDERS: Emergency Medicine
DX: R09.02 Hypoxemia (principal); Z96.653 Presence of artificial knee joint, bilateral; Z79.82 Long term (current) use of aspirin; Z79.899 Other long term (current) drug therapy